=== PATIENT | female | born 1955 | race Caucasian/White ===

== ENCOUNTER 2022-01-03 16:15 | Emergency (ER) | payer MEDICARE, OTHER, SELFPAY ==
[2022-01-03] VITALS (11 sets, daily range): BP systolic 132–190; BP diastolic 65–97; PULSE 62–74; RESP 8–23; TEMP 36.4; O2SAT 93–98; BMI 18.6
--- NOTE | 2022-01-03 16:07 | ED_ITS ---
HPI - Abdominal Pain General Chief Complaint: Abdominal Pain Stated Complaint: abd pain Time Seen by Provider: 01/03/22 16:13 History of Present Illness HPI narrative: Patient is a 66-year-old healthy female who presents with sudden onset of left flank pain. 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 Pain became so intention she required 150 mcg of fentanyl 2.5 of Versed she is overall confused and a very poor historian. There are reports of some nausea vomiting as well. Patient finally comes around has very poor memory of how she got here. She sta landon pain came on suddenly she does have a known 6 mm left-sided kidney stone. She was supposed to see urology at [facility] in January to possibly have a stone blast. Related Data Previous Rx's Medication Instructions Recorded hydrocodone 5 mg-acetaminophen 325 1 tab PO Q6H PRN pain #10 tabs 01/03/22 mg tablet ondansetron 4 mg disintegrating 4 mg PO Q8H PRN nausea and 01/03/22 tablet vomiting #10 tabs Allergies Allergy/AdvReac Type Severity Reaction Status Date / Time No Known Drug Allergies Allergy Verified 01/03/22 16:10 Review of Systems Review of Systems Narrative: GENERAL: Denies chills, fatigue, malaise, fever, sweats, travel HEENT: Denies sinus pain, ear pain, sore throat, difficulty swallowing, neck pain RESPIRATORY: Denies dyspnea, cough, wheezing, hemoptysis, sputum. CARDIOVASCULAR: Denies chest pain, palpitations, orthopnea, edema GASTROINTESTINAL: Denies nausea, vomiting, abdominal pain, diarrhea, constipation, melena. : See HPI MUSCULOSKELETAL: Denies weakness, joint pain, or bony pain SKIN: No rash, no erythema, no pruritus NEUROLOGIC: Denies weakness, dizziness, headache, numbness, change in speech, confusion PSYCHIATRIC: No concerning psychosocial issues. 12 point review of systems is negative except for those stated above and HPI Patient History Social History Smoking Status: Never smoker Exam Initial Vital Signs Initial Vital Signs: Vital Signs Temperature 97.5 F L 01/03/22 16:10 Pulse Rate 62 01/03/22 16:10 Respiratory Rate 18 01/03/22 16:10 Blood Pressure 190/97 H 01/03/22 16:10 Pulse Oximetry 94 01/03/22 16:10 Oxygen Delivery Method 01/03/22 16:10 GENERAL: Alert confused 66-year-old female appears uncomfortable HEENT: Head atraumatic,EOMI, pupils reactive, face symmetric, moist mucous membranes CARDIOVASCULAR: Regular rate and rhythm without murmurs, rubs or gallops. RESPIRATORY: Breath sounds equal bilaterally, no wheezes rales or rhonchi. ABDOMEN: Soft, nontender. Normoactive bowel sounds all 4 quadrants. No guardin g or rebound. : left cva tenderness EXTREMITIES: Normal range of motion, no clubbing or edema. Neurovascularly intact NEUROLOGICAL: Alert and oriented x4. SKIN: Warm, dry, no laceration, no petechiae, no rashes or lesions. Course Orders Ordered: Discontinued Medications Hydrocodone Bitart/Acetaminophen (Hydrocodone/Acet 5/325 Prepack) 1 bottle [facility] [place] [facility] ONE Stop: 01/03/22 20:00 Last Admin: 01/03/22 20:07 Dose: 1 bottle Documented By: MONICO Sodium Chloride (Normal Saline 0.9%) 1,000 mls @ 1,000 mls/hr IV CONT CHAR Last Infusion: 01/03/22 17:31 Dose: 0 mls/hr Documented By: Admin: 01/03/22 16:24 Dose: 1,000 mls/hr Documented By: DERICK Ibuprofen (Ibuprofen 400 Mg Tablet) 800 mg PO NOW ONE Stop: 01/03/22 20:19 Last Admin: 01/03/22 20:21 Dose: 800 mg Documented By: MONICO Ketorolac Tromethamine (Ketorolac 30 Mg/Ml Vial) 30 mg IV NOW ONE Stop: 01/03/22 16:08 Last Admin: 01/03/22 16:23 Dose: 30 mg Documented By: DERICK Ondansetron HCl (Ondansetron 4 Mg Odt Prepack) 1 bottle [facility] ONE Stop: 01/03/22 20:00 Last Admin: 01/03/22 20:07 Dose: 1 bottle Documented By: MONICO Vital Signs Vital signs: Vital Signs - 8 hr 01/03/22 16:10 01/03/22 16:22 01/03/22 17:00 Temperature 97.5 F L Pulse Rate 62 62 63 Respiratory Rate 18 19 19 Blood Pressure 190/97 H Pulse Oximetry 94 98 93 Oxygen Delivery Method Room Air 01/03/22 17:30 01/03/22 18:00 01/03/22 18:11 Temperature Pulse Rate 70 67 70 Respiratory Rate 11 L 8 L 14 Blood Pressure Pulse Oximetry 96 95 97 Oxygen Delivery Method 01/03/22 18:11 01/03/22 18:30 01/03/22 18:30 Temperature Pulse Rate 63 Respiratory Rate 9 L Blood Pressure 133/74 133/65 Pulse Oximetry 95 Oxygen Delivery Method 01/03/22 19:00 01/03/22 19:00 01/03/22 19:24 Temperature Pulse Rate 66 74 Respiratory Rate 14 23 Blood Pressure 132/70 Pulse Oximetry 95 Oxygen Delivery Method 01/03/22 19:24 01/03/22 19:30 01/03/22 19:31 Temperature Pulse Rate 72 71 Respiratory Rate 22 17 Blood Pressure 161/82 H Pulse Oximetry Oxygen Delivery Method 01/03/22 19:31 Temperature Pulse Rate Respiratory Rate Blood Pressure 157/74 H Pulse Oximetry Oxygen Delivery Method MDM - Abdominal Pain Lab Data Result diagrams: 01/03/22 16:08 01/03/22 16:08 Labs: Lab Results 01/03/22 01/03/22 01/03/22 Range/Units 16:08 16:08 19:20 WBC 9.6 (4.5-11.0) X10^3/uL RBC 4.37 (4.0-5.2) X10^6/uL Hgb 13.5 (12.0-16.0) g/dL Hct 39.5 (36-46) % MCV 90.4 (80-100) fL MCH 30.8 (26-34) PG MCHC 34.1 (30-36) % RDW 13.7 (11.6-14.8) % Plt Count 164 (150-400) X10^3/uL Neut % (Auto) 84.2 H (50-75) % Lymph % (Auto) 9.8 L (25-40) % Hinds % (Auto) 5.2 (3-14) % Eos % (Auto) 0.4 L (2-4) % Baso % (Auto) 0.4 (0-2) % Neut # (Auto) 8100 H (1993-0664) /uL Lymph # (Auto) 900 L (4494-3643) /uL Hinds # (Auto) 500 (0-900) /uL Eos # (Auto) 0 (0-450) /uL Baso # (Auto) 0 (0-100) /uL Sodium 138 (137-145) mmol/L Potassium 3.8 (3.4-5.1) mmol/L Chloride 104 (98-107) mmol/L Carbon Dioxide 24 (22-32) mmol/L BUN 23 H (7-17) mg/dL Creatinine 0.68 (0.52-1.04) mg/dL Estimated GFR > 60 (>60) mL/min BUN/Creatinine Ratio 33.8 H (6-22) Glucose 130 H (80-110) mg/dL Calcium 8.8 (8.4-10.2) mg/dL Total Bilirubin 0.3 (0.2-1.3) mg/dL AST 29 (14-36) IU/L ALT 17 (<35) IU/L Alkaline Phosphatase 77 (38-126) U/L Total Protein 7.2 (6.3-8.2) g/dL Albumin 4.1 (3.5-5.0) g/dL Globulin 3.1 (1.7-4.1) g/dL Albumin/Globulin Ratio 1.3 (1.0-2.8) Lipase 86 (23-300) U/L Urine RBC 5-10/hpf H (0-5/HPF) Urine WBC 5-10/hpf H (0-5/HPF) Ur Squamous Epith Cells 0-1 /hpf (0-5/HPF) Urine Bacteria Moderate (10-30) H (None) Ur Culture Indicated? Culture not indicate Point of care testing: Urine Dip Bedside Urine Glucose Negative Bedside Urine Bilirubin - Negative Bedside Urine Ketone - Negative Urine Specific [place] 1.015 Bedside Urine Occult Blood +++ Bedside Urine pH 6.5 Bedside Urine Protein - Negative Bedside Urine Urobilinogen - Negative Bedside Urine Nitrite - Negative Bedside Urine Leukocytes - Negative Esterase Imaging Data CT scan - abdomen/pelvis: Radiologist's Impression: Kamala Campos MR#: [id number] : 1955 Acct:[id number] Age/Sex: 66 / F Date of Service: 01/03/22 Loc: ED Accession Number: [id number] ?? Procedure: CT kidney ureter bladder (KUB) Ordering Provider: Joana Mccann D.O. PROCEDURE:? CT KIDNEY URETER BLADDER (KUB) ? INDICATIONS:? left flank pain ? TECHNIQUE:? Axial sections were acquired from the lung bases to the pubic symphysis.? Co greg and sagittal reformats were performed.? For radiation dose reduction, the following was used: ?automated exposure control, adjustment of mA and/or kV according to patient size.? ? COMPARISON:? None. ? FINDINGS:? Image quality:? Excellent.? ? Lung bases:? Unremarkable.? ? Heart:? No significant findings. ? URINARY: Right Kidney: ? No stones or hydronephrosis.? Right Ureter:? No hydroureter.? ? Left Kidney:? There is moderate left hydronephrosis and moderate left perinephric fat stranding.? No left nephrolithiasis.? Left Ureter:? The proximal ureter is dilated.? There is a 7 mm calculus within the upper left ureter which measures approximately 1400 Hounsfield units in density.? The downstream ureter is decompressed.? No other ureteral calculi.? ? Bladder:? Normal wall thickness. No stones. ? ? ? ABDOMEN: Liver:? Unremarkable.? ? Gallbladder:? Unremarkable.? ? Biliary ducts:? Unremarkable.? ? Pancreas:? Unremarkable.? ? Spleen:? Unremarkable.? ? Adrenal Glands:? Unremarkable.? ? ? Stomach and Bowel:? Stomach, small bowel loops, and colon are unremarkable.? There are scattered sigmoid diverticula. No evidence for diverticulitis. The appendix is thin walled and gas filled. Peritoneum:? No abnormal intraperitoneal fluid.? No free air.? ? Ventral Wall: ? No hernia.? Abdominal Nodes:? No enlarged retroperitoneal or mesenteric lymph nodes.? Vessels:? Aorta and inferior vena cava are normal in size.? ? PELVIS: Pelvic Organs:? Unremarkable.? ? Pelvic Nodes: Unremarkable. Miscellaneous: No inguinal hernias are seen. ? ? ? Bones:? Unremarkable. ? IMPRESSION:? ? 1.? Obstructive left ureterolithiasis with moderate left hydronephrosis and hydroureter. ? 2. Normal appendix.? Diverticulosis.? No acute diverticulitis.? MDM Narrative Medical decision making narrative: The patient is found have a 7 mm left ureteral kidney stone. Blood work is reassuring no sign of kidney failure. No evidence of infection at this time. Patient is followed by [facility]rology . Consult and call placed to be self Urology however is waiting for them to call back. At this time there is no need for any sort of emergent transfer. Patient can certainly follow up as an outpatient. Urology did call back and they will contact her today for close follow-up. Discharge Plan Departure Patient Disposition: Home Clinical Impression: Kidney stone on left side Instructions: Kidney Stones -- Adult Activity Restrictions/Additional Instructions: *You have been diagnosed with left-sided kidney stone *What to do: At this time you will likely need intervention for this kidney stone. Please call your urologist tomorrow. Be sure to stay hydrated and drink plenty of fluids including Gatorade or Gator shraddha like product *Continue to take medications as directed Ibuprofen 600 mg every 6 hours if needed for stfe-aq-cuqjyucs pain Nickerson 1 tablet every 6 hours if needed for severe Zofran 4 mg every 8 hours if needed for nausea vomiting *Follow up with your primary care provider in 2-3 days or call [phone] Call urology piece pills tomorrow to schedule out patient follow-up in the next 2-3 days *Return to ER if you should have increasing pain persistent vomiting fever or any new, worsening or concerning symptoms CONTROLLED SUBSTANCE DISCHARGE (Narcotoic/benzodiazepine/Flexeril/Phenergan) 1. You have been prescribed narcotic medications, it does have acetaminophen/Tylenol/paracetamol in it, DO NOT TAKE MORE THAN 4,00mg in 24 hours of Tylenol. TRAMADOL DOES NOT CONTAIN TYLENOL 2. Please understand that we cannot provide further refills of narcotics, benzodiazepines or controlled substances through the ED and her pain management will need to be through your provider. 3. While on these medications you cannot drive or operate heavy machinery. 4. You cannot sign legal documents or perform any duties such as this. 5. As long as you're taking opiate pain medications he should also be taking a stool softener such as Colace, Dulcolax, MiraLAX or prune juice, to help avoid constipation. Prescriptions: New hydrocodone-acetaminophen 5-325 mg tablet 1 tab PO Q6H PRN (Reason: pain) Qty: 10 0RF ondansetron 4 mg tablet,disintegrating 4 mg PO Q8H PRN (Reason: nausea and vomiting) Qty: 10 0RF Visit Report Forms: Patient Portal/API
--- NOTE | 2022-01-03 16:15 | DI.CT.S_ITS ---
PROCEDURE: CT KIDNEY URETER BLADDER (KUB) INDICATIONS: left flank pain TECHNIQUE: Axial sections were acquired from the lung bases to the pubic symphysis. Coronal and sagittal reformats were performed. For radiation dose reduction, the following was used: automated exposure control, adjustment of mA and/or kV according to patient size. COMPARISON: None. FINDINGS: Image quality: Excellent. Lung bases: Unremarkable. Heart: No significant findings. URINARY: Right Kidney: No stones or hydronephrosis. Right Ureter: No hydroureter. Left Kidney: There is moderate left hydronephrosis and moderate left perinephric fat stranding. No left nephrolithiasis. Left Ureter: The proximal ureter is dilated. There is a 7 mm calculus within the upper left ureter which measures approximately 1400 Hounsfield units in density. The downstream ureter is decompressed. No other ureteral calculi. Bladder: Normal wall thickness. No stones. ABDOMEN: Liver: Unremarkable. Gallbladder: Unremarkable. Biliary ducts: Unremarkable. Pancreas: Unremarkable. Spleen: Unremarkable. Adrenal Glands: Unremarkable. Stomach and Bowel: Stomach, small bowel loops, and colon are unremarkable. There are scattered sigmoid diverticula. No evidence for diverticulitis. The appendix is thin walled and gas filled. Peritoneum: No abnormal intraperitoneal fluid. No free air. Ventral Wall: No hernia. Abdominal Nodes: No enlarged retroperitoneal or mesenteric lymph nodes. Vessels: Aorta and inferior vena cava are normal in size. PELVIS: Pelvic Organs: Unremarkable. Pelvic Nodes: Unremarkable. Miscellaneous: No inguinal hernias are seen. Bones: Unremarkable. IMPRESSION: 1. Obstructive left ureterolithiasis with moderate left hydronephrosis and hydroureter. 2. Normal appendix. Diverticulosis. No acute diverticulitis. Dictated by: Chapis Black M.D. on 01/03/2022 at 16:33 Approved by: Chapis Black M.D. on 01/03/2022 at 16:36
[2022-01-03] MEDS: KETOROLAC 30 MG/ML VIAL IV (16:23)
[2022-01-03] MEDS: SODIUM CHLORIDE 0.9% 1,000 ML 1000 ML IV (16:24)
[2022-01-03 16:26] LABS: Add Manual Diff / Slide Review NO; Basophils Absolute Auto 0 /uL (0-100); Basophils Percent Auto 0.4 % (0-2); Eosinophils Absolute Auto 0 /uL (0-450); Eosinophils Percent Auto 0.4 % (2-4); Hematocrit 39.5 % (36-46); Hemoglobin 13.5 g/dL (12.0-16.0); Lymphocytes Absolute Auto 900 /uL (1100-4500); Lymphocytes Percent Auto 9.8 % (25-40); Mean Corpuscular HGB Conc 34.1 % (30-36); Mean Corpuscular Hemoglobin 30.8 PG (26-34); Mean Corpuscular Volume 90.4 fL (80-100); Monocytes Absolute Auto 500 /uL (0-900); Monocytes Percent Auto 5.2 % (3-14); Neutrophils Absolute Auto 8100 /uL (1500-7000); Neutrophils Percent Auto 84.2 % (50-75); Platelet Count 164 X10^3/uL (150-400); Red Blood Cell Count 4.37 X10^6/uL (4.0-5.2); Red Cell Distribution Width 13.7 % (11.6-14.8); White Blood Cell Count 9.6 X10^3/uL (4.5-11.0)
[2022-01-03 16:34] LABS: Alanine Aminotransferase 17 IU/L (<35); Albumin 4.1 g/dL (3.5-5.0); Albumin Globulin Ratio 1.3 (1.0-2.8); Alkaline Phosphatase 77 U/L (38-126); Aspartate Aminotransferase 29 IU/L (14-36); BUN Creatinine Ratio 33.8 (6-22); Bilirubin Total 0.3 mg/dL (0.2-1.3); Blood Urea Nitrogen 23 mg/dL (7-17); Calcium 8.8 mg/dL (8.4-10.2); Carbon Dioxide 24 mmol/L (22-32); Chloride 104 mmol/L (98-107); Estimated Glomerular Filt Rate > 60 mL/min (>60); Globulin 3.1 g/dL (1.7-4.1); Glucose 130 mg/dL (80-110); HEMOLYSIS < 15 (0-50); Lipase 86 U/L (23-300); Potassium 3.8 mmol/L (3.4-5.1); Sodium 138 mmol/L (137-145); Total Protein 7.2 g/dL (6.3-8.2)
[2022-01-03 19:43] LABS: Bacteria Urine Moderate (10-30); RBC Urine 5-10/HPF (0-5/HPF); Squamous Epithelial Cell Urine 0-1 /HPF (0-5/HPF); WBC Urine 5-10/HPF (0-5/HPF)
[2022-01-03] MEDS: HYDROCODONE/ACET 5/325 PREPACK 1 BOTTLE MISC (20:07)
[2022-01-03] MEDS: ONDANSETRON 4 MG ODT PREPACK 1 BOTTLE MISC (20:07)
[2022-01-03] MEDS: IBUPROFEN 400 MG TABLET 800 MG PO (20:21)
== END 2022-01-03 20:26 | disposition home or self-care (01) ==
PROVIDERS: Emergency Provider Emergency Medicine
DX: N20.0 Calculus of kidney (principal)
CPT/HCPCS: 74176; 80053; 81003; 81015; 83690; 85025; 87086; 96361; 96374; 99284; J1885